=== PATIENT | male | born 1985 | race African-American/Black ===

== ENCOUNTER 2024-05-29 12:17 | Emergency (ER) | payer MEDICAID ==
[~2024-05-29] VITALS: Ht 170.2 cm; Wt 72.7 kg
[~2024-05-29 12:17] MED LIST: CYCL-1 PO
[2024-05-29 14:18] VITALS: BP 116/72; PULSE 70; RESP 15; TEMP 97.9; O2SAT 99
== END 2024-05-29 14:20 | disposition home or self-care (01) ==
LOC: ER 12:17
DX: M25.511 Pain in right shoulder (principal); M79.641 Pain in right hand
CPT/HCPCS: 73030; 99283